=== PATIENT | female | born 1980 | race Caucasian/White ===

== ENCOUNTER 2023-02-05 01:54 | Emergency (ER) | payer BC, SELFPAY ==
[2023-02-05 01:55] VITALS: BP 150/82; PULSE 73; PULSE 80; RESP 16; TEMP 36.9; O2SAT 100; O2SAT 99; BMI 52.8
--- NOTE | 2023-02-05 02:35 | EDS_ITS ---
HPI History of Present Illness Chief Complaint: Nosebleed Narrative Narrative: 42-year-old female presents with bleeding from her left nares that she has had over the last hour. She states this is the third nosebleed that she has had in 24 hours. [place] She states she has not had a nosebleed and 5 years. She does not take blood thinners. She denies any chest pain or shortness of breath, no lightheadedness or dizziness. She states she went up to wash her face, and her left nares started bleeding again. The last time it bled for this was at 7 PM, around 6 hours ago. She denies any trauma, no other bleeding diathesis. [facility] Medical History Asthmatic bronchitis with exacerbation Depression GERD (gastroesophageal reflux disease) PTSD (post-traumatic stress disorder) Home Medications cetirizine 10 mg tablet (All Day Allergy (cetirizine)) 10 mg PO DAILY allergies 02/05/23 [History Last Taken Unknown] escitalopram oxalate 20 mg tablet 20 mg PO DAILY 02/05/23 [History Last Taken Unknown] levonorgestrel-ethinyl estradiol 0.1 mg-20 mcg tablet (Aviane) 1 tab PO DAILY 02/05/23 [History Last Taken Unknown] spironolactone 50 mg tablet 50 mg PO Q24H rash on back 02/05/23 [History Last Taken Unknown] Allergy/AdvReac Type Severity Reaction Status Date / Time No Known Allergies Allergy Verified 02/05/23 01:59 Social History Smoking Status: Never smoker ROS ROS ED ROS Narrative Constitutional: No fever, no chills. HEENT: No sore throat. No neck pain. No loss of vision. No rhinorrhea. Positive epistaxis from left nares Cardiovascular: No chest pain. No palpitations. No pedal edema. Respiratory: No cough, no shortness of breath. Abdominal: No abdominal pain. No nausea. No vomiting. Genitourinary: No dysuria. No hematuria. Musculoskeletal: No myalgias. No arthralgias. Neurologic: No headaches. No dizziness. No lightheadedness. Skin: No rash. No change in color. Psychiatric: No depression. No anxiety. EXAM Physical Exam Narrative Exam Narrative: Afebrile. Vital signs noted. HEENT: Normocephalic. Atraumatic. PERRL, EOMI. Neck soft and supple. No point tenderness or step off. Kleenex in left nares. No active bleeding. No posterior pharynx bleeding. Cardiovascular: Regular rate and rhythm. No murmurs, rubs, or gallops appreciated. Respiratory: No tachypnea. Lungs clear to auscultation bilaterally. Gastrointestinal: Abdomen soft, nontender, with normoactive bowel sounds. No rebound or guarding. Neurological: Awake. Alert. Nonfocal, nonlateralizing. Skin: No rash. Normal color. No pallor. Musculoskeletal: No pedal edema. Full range of motion extremities. Const Vital Signs: 02/05/23 01:55 02/05/23 01:55 Temperature 98.4 F Temperature Source Temporal Pulse Rate 73 80 Respiratory Rate 16 16 Blood Pressure 150/82 H Blood Pressure Mean 104 Pulse Ox 100 99 Oxygen Delivery Method Room Air Room Air MDM MDM MDM Narrative Medical decision making narrative: In the differential diagnosis is epistaxis from low platelets versus bleeding from Kesselbach's area. She has not excessively hypertensive. She states the last time when she was washing her face, a lot of clots came out. She showed a picture that there were large clots from her left nares. I will check a CBC to make sure she is not anemic or thrombocytopenic. I reviewed her laboratory work and she has normal white count of 8.2, hemoglobin normal at 13.1, platelet count normal at 254. The Kleenex was removed and there is no evidence of active bleeding. There are no large clots and her nasal passage was cleared by the patient blowing. There was no active bleeding. Cottonball soaked in Afrin and lidocaine 4% was inserted into the left nares and left for approximately 10 to 15 minutes. After removal, there is no evidence of active bleeding. There was a small amount of blood on a cottonball. Through visual inspection, there is no area where I can see that I could cauterized using silver nitrate. Through shared decision making, as there is no active bleeding, patient is declining nasal packing. She was told that should she experience rebleed which is a good possibility, that she should apply pressure for 10 to 15 minutes. She will follow-up with otolaryngology soon as possible in the next few days. Return instructions to the emergency department were reviewed. Disposition is discharged home in stable condition. History & Record Review Discussion w/independent historian: Patient Additional record(s) reviewed:: Prior ED visit Lab Data Attestation: I reviewed the patient's lab results. Labs: Laboratory Results - last 24 hr 02/05/23 02:40 WBC 8.2 RBC 4.55 Hgb 13.1 Hct 40.6 MCV 89.2 MCH 28.8 MCHC 32.3 RDW Std Deviation 41.8 RDW Coeff of Arpan 12.8 Plt Count 254 MPV 9.7 Immature Gran % (Auto) 0.700 Neut % (Auto) 60.3 Lymph % (Auto) 27.0 [place] % (Auto) 9.7 Eos % (Auto) 2.1 Baso % (Auto) 0.2 Absolute Neuts (auto) 4.9 Absolute Lymphs (auto) 2.20 Nucleated RBC % 0 Discharge Plan Triage Chief Complaint: Nosebleed ED Provider: Telly aMssey Dx/Rx/DC Orders Clinical Impression: Epistaxis Instructions: ED Epistaxis (Adult) Prescriptions: No Action levonorgestrel-ethinyl estrad [Aviane] 0.1-20 mg-mcg tablet 1 tab PO DAILY escitalopram oxalate 20 mg tablet 20 mg PO DAILY spironolactone 50 mg tablet 50 mg PO Q24H cetirizine [All Day Allergy (cetirizine)] 10 mg tablet 10 mg PO DAILY Primary Care Provider: SRINATH MCDONALD Referrals: SRINATH MCDONALD [Other] Trey Cummins MD [Med Staff - Active Staff] - 3-5 Days if not improving Eduar Grace MD [Med Staff - Active Staff] - 3-5 Days if not improving Activity Restrictions/Additional Instructions: If your nose starts rebleeding, apply nasal clamp for at least 10 to 15 minutes. Return with continued bleeding, new or worsening symptoms. Disposition Disposition: Home, Self Care
[2023-02-05 02:46] LABS: Absolute Neutrophil Count 4.9 X10^3/uL (2.0-7.7); Basophil# 0.02 X10^3/uL; Basophil% 0.2 % (0-1); Eosinophil# 0.17 X10^3/uL; Eosinophils% 2.1 % (0-5); Hematocrit 40.6 % (37-47); Hemoglobin 13.1 g/dL (12.0-15.0); Mean Corp Hgb Conc 32.3 g/dL (32-36); Mean Corpuscular Hgb 28.8 pg (27.0-32.0); Mean Corpuscular Volume 89.2 fL (81-99); Mean Platelet Vol. 9.7 fl (6.2-12.0); Monocyte# 0.79 X10^3/uL; Monocyte% 9.7 % (0-10); NRBC Flagged by Analyzer 0 % (0-5); Neutrophil # 4.91 X10^3/uL (2.7-7.7); Neutrophil % 60.3 % (47-70); Platelet Count 254 K/mm3 (150-450); RBC Distribution Width CV 12.8 % (11.6-14.6); RBC Distribution Width SD 41.8 fl (35.1-43.9); Red Blood Count 4.55 M/mm3 (4.2-5.4); White Blood Count 8.2 K/mm3 (4.4-11.0)
[2023-02-05] MEDS: Oxymetazoline 0.05% 1 SPRAY SPRAY.BTL 2 SPRAY NASAL (02:48)
[2023-02-05] MEDS: Lidocaine 4% 50 ML Bottle TOPICAL (02:49)
[2023-02-05 03:40] VITALS: PULSE 72; RESP 18; O2SAT 96
== END 2023-02-05 03:41 | disposition home or self-care (01) ==
PROVIDERS: Emergency Provider Emergency Medicine; Visit Provider Emergency Medicine
DX: R04.0 Epistaxis (principal)
CPT/HCPCS: 85025; 99282